=== PATIENT | male | born 1985 | race African-American/Black ===

== ENCOUNTER 2021-07-25 18:54 | Emergency (ER) | payer OTHER ==
[~2021-07-25] VITALS: Ht 167.6 cm; Wt 68.0 kg
[2021-07-25] MEDS ORDERED: AUGMENTIN 875-1 EACH PO ×2 (21:12→21:16)
[2021-07-25 21:29] VITALS: BP 132/68
== END 2021-07-25 21:25 | disposition home or self-care (01) ==
LOC: ER 18:54
DX: J32.1 Chronic frontal sinusitis (principal); Z20.822 Contact with and (suspected) exposure to COVID-19; J32.0 Chronic maxillary sinusitis; F17.200 Nicotine dependence, unspecified, uncomplicated; F12.90 Cannabis use, unspecified, uncomplicated; Z88.2 Allergy status to sulfonamides; Z88.8 Allergy status to other drugs, medicaments and biological substances